=== PATIENT | female | born 1940 | race Caucasian/White ===

== ENCOUNTER → 2016-09-29 | Outpatient (REF) | payer MEDICARE ==
[~2016-09-29] MED LIST: /WARF5TA; ACET65TA; PERC5TAB8; PERC7.5T8; REFRESH EYE DROPS; SYNT50TA; TYLENOL ARTHRITIS; VITAMIN D50000 UNT; [UNRECOGNIZED DRUG - OTHER]
[2016-09-29 16:25] LABS: MICROSCOPIC INDICATED? MAN YES (NO)
[2016-09-29 16:58] LABS: SQUAMOUS EPITHELIAL CELL URINE SMALL AMOUNT /hpf (SMALL AMT); WBC, URINE 0-1 /hpf (0-3)
[2016-09-29 17:02] LABS: BACTERIA, URINE MOD AMOUNT; HYALINE CAST, URINE NONE SEEN /lpf (0-1)
[2016-09-29 17:05] LABS: MICROSCOPIC EXAM PERFORMED
== END ==
LOC: M LAB REF 15:58
PROVIDERS: ATTEND Nurse Practitioner Family
DX: R31.9 Hematuria, unspecified (principal)

== ENCOUNTER 2016-11-30 15:27 | Emergency (ER) | payer OTHER, MEDICARE ==
[~2016-11-30] VITALS: Ht 165.1 cm; Wt 88.5 kg
[2016-11-30 15:28] VITALS: BP 134/61
[2016-11-30] MEDS ORDERED: FERR32TA (15:57)
[2016-11-30] MEDS ORDERED: PANT40TA2 (15:57)
[2016-11-30] MEDS ORDERED: FURO1TAB15 PO (15:57)
[2016-11-30] MEDS ORDERED: BISO5TAB5 (15:57)
[2016-11-30] MEDS ORDERED: ELIQ5TAB (15:57)
[2016-11-30] MEDS ORDERED: ACETAMINOPHEN TAB 650MG DOSE (2X325MG) PO ONE (16:15)
--- NOTE | 2016-11-30 16:52 | REP ---
CT BRAIN WITHOUT CONTRAST: 11/20/2016. Clinical history: Trauma. Findings: Soft tissue and bone windows are reviewed for each slice level. Ventricles are midline symmetric and without dilatation or displacement. Basal ganglia are symmetric and normal. The fernandez-white junction differentiation was maintained. Cortical stripe shows minimal atrophy but no intracranial hemorrhage, acute infarct, mass, mass effect or edema. 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 Brainstem unremarkable. Cerebellum grossly intact. Basal cisterns are intact. The mastoids and visualized sinuses are clear. Deviation the nasal septum towards the right is seen and contra bullosa of the middle turbinate on the left. Orbits and contents grossly symmetric. No fracture of the skull base or calvarium. In the high right parietal vertex scalp paramedian, there is a 5 mm subcutaneous hyperdense nodule most likely a calcified sebaceous cyst, however, an imbedded foreign body could give this appearance, except that there is no visible soft tissue laceration or swelling. Impression: 1. No intracranial hemorrhage, acute infarct, edema or mass. Very minimal atrophy cerebral and cerebellar hemispheres, normal for age. 2. No ventriculomegaly. Basal cisterns intact. Posterior fossa unremarkable. Mastoids and sinuses intact. 3. 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 Calvarium and skull base intact. Deviated septum towards the right. 4. A 5 mm right parietal vertex paramedian scalp 5 mm calcification suggesting rim calcification on a sebaceous cyst in the scalp. I see no soft tissue swelling or laceration to suggest an embedded foreign body. Signed by Ramón Friedman MD 11/30/2016 05:26 P
--- NOTE | 2016-11-30 17:08 | REP ---
CT CERVICAL SPINE WITHOUT CONTRAST: 11/30/2016. Comparison: 04/16/2008. Clinical history: Trauma. Coronal reconstructions show the dens and lateral masses for C1 align normally with the dens relationship to the anterior arch showing narrowing of that space on the axial and sagittal views. Ring of C1 intact. Spinous processes, lamina, transverse processes, pedicles, facets and transverse foramina were grossly intact. There is some facet arthropathy, but no fracture or destructive lesion involving the cervical vertebral levels. There is diffuse spondylosis with disc space narrowing at C3-4 through C7-T1 and anterior osteophytes at all of these levels. The axial views show mild central canal stenosis less than 10 mm at C3-4, C4-5, C6-7 and C7-T1. Foramina show encroachment with minimal narrowing of a few foramina due to uncinate spurs. There is no malalignment or prevertebral swelling. Craniocervical junction aligns normally as does the cervical thoracic junction. Impression: 1. Diffuse cervical spondylosis from C3-4 through C7-T1 without compression deformity. There is mild central canal stenosis with canal diameters from 8 to 9.8 mm. 2. Some minimal foraminal encroachment and some uncinate spurring. 3. No malalignment, prevertebral swelling, torticollis or other acute finding. 4. C1-2 relationships show degenerative change but appear symmetric on the coronal view. Stable examination. Signed by Ramón Friedman MD 11/30/2016 05:27 P
--- NOTE | 2016-11-30 17:11 | REP ---
Right hand series: Four views: History: Trauma. Findings: Four views of the right hand demonstrate overall normal mineralization. No fracture or subluxation is seen. There is minimal spurring at the DIP joints of the fingers. Impression: No fracture noted. Signed by Jakob Cortez MD 12/01/2016 11:21 A
== END 2016-11-30 17:16 | disposition home or self-care (01) ==
LOC: M ED 17:04
DX: S60.221A Contusion of right hand, initial encounter (principal); R51 Headache; M47.812 Spondylosis without myelopathy or radiculopathy, cervical region; M85.2 Hyperostosis of skull; L72.3 Sebaceous cyst; V09.20XA Pedestrian injured in traffic accident involving unspecified motor vehicles, initial encounter; Y92.481 Parking lot as the place of occurrence of the external cause; Y93.89 Activity, other specified; Y99.9 Unspecified external cause status

== ENCOUNTER → 2017-12-03 | Outpatient (CLI) | payer MEDICARE | LOC: M RAD 12:43 | DX: R92.0 Mammographic microcalcification found on diagnostic imaging of breast (principal) | CPT/HCPCS: 77066 ==

== ENCOUNTER → 2018-05-27 | Outpatient (REF) | payer MEDICARE | LOC: M LAB REF 16:32 | DX: R41.0 Disorientation, unspecified (principal) | CPT/HCPCS: 82607 ==

== ENCOUNTER → 2018-12-04 | Outpatient (CLI) | payer MEDICARE ==
[~2018-12-04] MED LIST changes: -/WARF5TA; +BISO5TAB5; +COUM1TAB17; +ELIQ5TAB; +FERR32TA; +FURO80TA2 PO; +PANT40TA3
--- NOTE | 2018-12-04 14:18 | REPMRS ---
Patient History The patient states she had a clinical breast exam in 08/2018. Family history of unknown cancer in mother. Digital Woman Screen Mammo: December 04, 2018 - Exam #: [id number] Bilateral MLO, CC, and XCCL view(s) were taken. Technologist: Poppy Kaye, Technologist Prior study comparison: December 03, 2017, digital mammo diagnostic bilateral, performed at [facility]. August 04, 2016, bilateral digital woman screen mammo, performed at [facility]. August 04, 2014, bilateral digital mammo screening bilat, performed at [facility]. FINDINGS: There are scattered fibroglandular densities. There has been no change in the appearance of the mammogram from the prior studies. There is a mild amount of scattered fibroglandular density which is fairly symmetric. There is no interval development of dominant mass, architectural distortion, or clustered microcalcification suggestive of malignancy. 3-D tomosynthesis shows no additional findings. Assessment: BI-RADS/ACR category 1 mammogram. Negative Mammogram. Recommendation Routine screening mammogram of both breasts in 1 year (for women over age 40). This patient's Lifetime Breast Cancer RIsk is estimated at 2.8 %. This mammogram was interpreted with the aid of an FDA-approved computer-aided dectection system. Electronically Signed By: Wiley Cortez MD 12/04/18 [id number]
--- NOTE | 2018-12-06 11:15 | DEXA ---
AP SPINE L1 - L4 1.446 2.0 3.8 LT FEMUR TOTAL 1.016 0.1 2.0 LT NECK 0.864 -1.3 0.8 RT FEMUR TOTAL 1.042 0.3 2.2 RT NECK 0.916 -0.9 1.2 TOTAL BODY TOTAL OTHER COMMENTS: Normal bone densitometry of the spine. Normal bone densitometry of the right hip. There is low bone density of the left hip. The density of the left hip has decreased 6.2% since 07/2012. The density of the right hip has decreased 4.5% since 07/2012. The density of the spine has increased 2.8% since the initial exam on 10/07/2001. The spine density has decreased 7.1% since the most recent exam on 07/2012 FOLLOW-UP: Recommendation for the next bone density exam: 2 years. AMADOU
== END ==
LOC: M WHC 10:02
PROVIDERS: ATTEND Nurse Practitioner Family
DX: Z12.31 Encounter for screening mammogram for malignant neoplasm of breast (principal); M81.0 Age-related osteoporosis without current pathological fracture

== ENCOUNTER → 2022-04-20 | Outpatient (REF) | payer MEDICARE ==
[~2022-04-20] MED LIST changes: +BISO5TAB14; -BISO5TAB5; +PANT40TA29; -PANT40TA3
[2022-04-21 12:43] LABS: PERCENT SATURATION 15.8 % (13.2-45.0)
== END ==
LOC: M LAB REF 11:51
PROVIDERS: ATTEND Internal Medicine
DX: D50.9 Iron deficiency anemia, unspecified (principal)

== ENCOUNTER → 2022-09-20 | Outpatient (CLI) | payer MEDICARE | LOC: M WHC 12:43 | PROVIDERS: ATTEND Internal Medicine | DX: Z12.31 Encounter for screening mammogram for malignant neoplasm of breast (principal) ==

== ENCOUNTER → 2023-08-17 | Outpatient (REF) | payer MEDICARE | LOC: M LAB REF 12:11 | PROVIDERS: ATTEND Internal Medicine | DX: D50.9 Iron deficiency anemia, unspecified (principal) ==

== ENCOUNTER → 2023-09-21 | Outpatient (CLI) | payer MEDICARE | LOC: M WHC 11:09 | PROVIDERS: ATTEND Internal Medicine | DX: Z12.31 Encounter for screening mammogram for malignant neoplasm of breast (principal); M85.851 Other specified disorders of bone density and structure, right thigh; M85.852 Other specified disorders of bone density and structure, left thigh; R92.323 Mammographic fibroglandular density, bilateral breasts ==

== ENCOUNTER → 2023-10-11 | Outpatient (CLI) | payer MEDICARE | LOC: M RAD 09:34 | PROVIDERS: ATTEND Internal Medicine Cardiovascular Disease | DX: R04.2 Hemoptysis (principal); J44.9 Chronic obstructive pulmonary disease, unspecified; K76.0 Fatty (change of) liver, not elsewhere classified; K82.8 Other specified diseases of gallbladder ==

== ENCOUNTER → 2023-10-11 | Outpatient (CLI) | payer MEDICARE ==
[~2023-10-11] MED LIST changes: +ISOVUE-370 76% 100ML VIAL As Ordered ONE
== END ==
LOC: M RAD 09:35
PROVIDERS: ATTEND Internal Medicine Cardiovascular Disease
DX: R09.89 Other specified symptoms and signs involving the circulatory and respiratory systems (principal)
CPT/HCPCS: 93880; Q9967

== ENCOUNTER → 2023-11-07 | Outpatient (CLI) | payer MEDICARE ==
[~2023-11-07] MED LIST changes: -ISOVUE-370 76% 100ML VIAL As Ordered ONE
== END ==
LOC: M EKG 12:54
PROVIDERS: ATTEND Internal Medicine Cardiovascular Disease
DX: I48.21 Permanent atrial fibrillation (principal); I44.30 Unspecified atrioventricular block

== ENCOUNTER → 2023-11-19 | Outpatient (REF) | payer MEDICARE | LOC: M LAB REF 11:50 | PROVIDERS: ATTEND Internal Medicine | DX: D50.9 Iron deficiency anemia, unspecified (principal) ==

== ENCOUNTER 2023-11-27 13:49 | Day surgery (SDC) | payer MEDICARE ==
[~2023-11-27] VITALS: Ht 157.5 cm; Wt 85.5 kg
[2023-11-27] MEDS: LIDOCAINE 1% SDV 30ML VIAL As Ordered ONE (13:35)
[~2023-11-27 13:49] MED LIST changes: +ALPH600C3 PO; +AMIODARONE HCL 360 MG/200 ML PREMIXED BAG (NEXTERONE) As Ordered ONE; +ARTH650T11 PO; +BACITRACIN OINTMENT 30GM TUBE As Ordered ONE; +D-101000 PO; +DOCU100C16 PO; -ELIQ5TAB; +ELIQ5TAB PO; -FERR32TA; +FERR32TA PO; +FURO40TA2 PO; +HYDR-643 PO; +ISOVUE-300 61% 100ML VIAL As Ordered ONE; -PANT40TA29; +PANT40TA29 PO; +POTA1TAB23 PO; +SUPECAP14 PO; +SYNT25TA PO
[2023-11-27] MEDS ORDERED: ISOVUE-M 300 61% 15ML VIAL As Ordered ONE (15:24)
[2023-11-27] MEDS ORDERED: LR 1,000 ML IV SCH (15:55)
[2023-11-27] MEDS: ceFAZolin 2 GM/D5W 50 ML IV BAG As Ordered ONE (16:59)
[2023-11-27] MEDS ORDERED: MIDAZOLAM INJ 2MG/2ML VIAL As Ordered ONE (17:08)
[2023-11-27] MEDS ORDERED: ePHEDrine SULFATE 25 MG/5 ML(5MG/ML) SYRINGE As Ordered ONE (17:08)
[2023-11-27] MEDS ORDERED: propofoL 200 MG/20 ML VIAL As Ordered ONE (17:08)
[2023-11-27] MEDS ORDERED: fentaNYL 100 MCG/2 ML INJECTION As Ordered ONE (17:08)
[2023-11-27] MEDS ORDERED: fentaNYL 100 MCG/2 ML INJECTION IV PRN (18:30)
[2023-11-27] MEDS ORDERED: ONDANSETRON 4MG 2ML VIAL IV PRN (18:30)
[2023-11-27] MEDS ORDERED: oxyCODONE 5MG TAB PO PRN (18:30)
[2023-11-27 20:00] VITALS: BP 125/65; TEMP 97.3; O2SAT 99
== END 2023-11-27 20:09 | disposition home or self-care (01) ==
LOC: M SDC 13:49
PROVIDERS: ATTEND Internal Medicine Cardiovascular Disease
DX: I48.21 Permanent atrial fibrillation (principal); I45.10 Unspecified right bundle-branch block; I11.0 Hypertensive heart disease with heart failure; I50.9 Heart failure, unspecified; E03.9 Hypothyroidism, unspecified; Z79.01 Long term (current) use of anticoagulants; Z79.899 Other long term (current) drug therapy; Z79.890 Hormone replacement therapy; G47.30 Sleep apnea, unspecified; Z90.710 Acquired absence of both cervix and uterus; Z87.891 Personal history of nicotine dependence
CPT/HCPCS: 33207; 71045; 76000; 93005; C1769; C1786; C1898; J0690; J2250; J3010; Q9967

== ENCOUNTER 2023-12-02 11:51 | Emergency (ER) | payer MEDICARE ==
[~2023-12-02] VITALS: Ht 165.1 cm; Wt 84.7 kg
[~2023-12-02 11:51] MED LIST changes: -AMIODARONE HCL 360 MG/200 ML PREMIXED BAG (NEXTERONE) As Ordered ONE; -BACITRACIN OINTMENT 30GM TUBE As Ordered ONE; -ISOVUE-300 61% 100ML VIAL As Ordered ONE
[2023-12-02 11:52] VITALS: TEMP 96.6
[2023-12-02 14:59] VITALS: BP 154/78; O2SAT 96
== END 2023-12-02 14:59 | disposition home or self-care (01) ==
LOC: M ED 11:51
DX: L76.82 Other postprocedural complications of skin and subcutaneous tissue (principal); I48.91 Unspecified atrial fibrillation; Z95.0 Presence of cardiac pacemaker; E03.9 Hypothyroidism, unspecified; G47.33 Obstructive sleep apnea (adult) (pediatric); Z79.01 Long term (current) use of anticoagulants; Z79.899 Other long term (current) drug therapy

== ENCOUNTER → 2023-12-18 | Outpatient (CLI) | payer MEDICARE | LOC: M PLAIMG 12:34 | PROVIDERS: ATTEND Internal Medicine Cardiovascular Disease | DX: I11.0 Hypertensive heart disease with heart failure (principal); I50.32 Chronic diastolic (congestive) heart failure; I27.81 Cor pulmonale (chronic); I27.20 Pulmonary hypertension, unspecified ==

== ENCOUNTER → 2024-04-30 | Outpatient (REF) | payer MEDICARE | LOC: M LAB REF 12:49 | PROVIDERS: ATTEND Internal Medicine | DX: D50.9 Iron deficiency anemia, unspecified (principal) ==

== ENCOUNTER → 2024-07-23 | Outpatient (REF) | payer MEDICARE | LOC: M LAB REF 12:48 | PROVIDERS: ATTEND Internal Medicine | DX: D50.9 Iron deficiency anemia, unspecified (principal) ==

== ENCOUNTER → 2025-05-05 | Outpatient (REF) | payer MEDICARE | LOC: M LAB REF 12:27 | PROVIDERS: ATTEND Internal Medicine | DX: D50.9 Iron deficiency anemia, unspecified (principal) ==